=== PATIENT | male | born 1965 | race Caucasian/White ===

== ENCOUNTER 2018-01-14 15:17 | Emergency (ER) | payer SELFPAY ==
--- NOTE | 2018-01-14 15:31 | PDOC ---
Rapid Medical Evaluation Time Seen by Provider: 01/14/18 15:28 Medical Evaluation: I have performed a brief in-person evaluation of this patient. The patient presents with a chief complaint of: left big toe pain since friday. atraumatic Pertinent physical exam findings: tender, swelling and erythema to base of left big toe. possible gout I have ordered the following: xray left foot The patient will proceed to the ED for further evaluation. Discharge Disposition - Diagnosis Left foot pain - Referrals - Patient Instructions - Post Discharge Activity
[2018-01-14 15:33] VITALS: BP 148/87; PULSE 68; TEMP 98.3; BMI 28.8
--- NOTE | 2018-01-14 16:05 | PDOC ---
History of Present Illness - General Chief Complaint: Pain Stated Complaint: SWOLLEN RT FOOT Time Seen by Provider: 01/14/18 15:28 History Source: Patient Exam Limitations: Clinical Condition - History of Present Illness Initial Comments: 01/14/18 15:58 [place] with no significant past medical history presenting with complaints of right big toe pain, redness and swelling. he denies any trauma to area. He denies fever, chills and denies history of gout. Timing/Duration: 24 hours Severity: moderate Modifying Factors: improves with: rest. worse with: movement Past History - Past Medical History Allergies/Adverse Reactions: Allergies Allergy/AdvReac Type Severity Reaction Status Date / Time No Known Allergies Allergy Verified 01/14/18 15:28 Home Medications: Ambulatory Orders Indomethacin 25 mg PO TID PRN #20 capsule 01/14/18 COPD: No - Suicide/Smoking/Psychosocial Hx Smoking History: Never smoked Have you smoked in the past 12 months: No Information on smoking cessation initiated: No Hx Alcohol Use: No Drug/Substance Use Hx: No Substance Use Type: None Review of Systems - Review of Systems Able to Perform ROS?: Yes Comments:: 01/14/18 16:00 CONSTITUTIONAL: Absent: fever, chills, fatigue EYES: Absent: visual changes ENT: Absent: ear pain, sore throat CARDIOVASCULAR: Absent: chest pain, palpitations RESPIRATORY: Absent: cough, SOB GI: Absent: abdominal pain, nausea, vomiting, constipation, diarrhea GENITOURINARY: Absent: dysuria, frequency, hematuria MUSKULOSKELETAL: Absent: back pain, arthralgia, myalgia SKIN: Redness to there left big toe, which is very painful with ambulation. Pain to same area of redness of left big toe Absent: rash NEURO: Absent: headache, dizziness Is the patient limited [place] Citizen proficient: No *Physical Exam - Vital Signs Last Vital Signs Temp Pulse Resp BP Pulse Ox 98.3 F 68 18 148/87 100 01/14/18 15:29 01/14/18 15:29 01/14/18 15:29 01/14/18 15:29 01/14/18 15:29 - Physical Exam Comments: 01/14/18 16:02 GENERAL: Well developed, well nourished. Awake and alert. No acute distress. HEENT: Normocephalic, atraumatic. PERRLA, EOMI. No conjunctival pallor. Sclera are non- icteric. Moist mucous membranes. Oropharynx is clear. NECK: Supple. Full ROM. No JVD. Carotid pulses 2+ and symmetric, without bruits. No thyromegaly. No lymphadenopathy. CARDIOVASCULAR: Regular rate and rhythm. No murmurs, rubs, or gallops. Distal pulses are 2+ and symmetric. PULMONARY: No evidence of respiratory distress. Lungs clear to auscultation bilaterally. No wheezing, rales or rhonchi. ABDOMINAL: Soft. Non-tender. Non-distended. No rebound or guarding. No organomegaly. Normoactive bowel sounds. MUSCULOSKELETAL : moderate tenderness to base of left the big toe. mild swelling to left big toe Normal range of motion at all joints. No bony deformities or tenderness. No CVA tenderness. EXTREMITIES: No cyanosis. No clubbing. No edema. No calf tenderness. SKIN: moderate erythema to base and proximal phalanx of left big toe. mild increased warm to left big toe NEUROLOGICAL: Alert, awake, appropriate. Cranial nerves 2-12 intact. No deficits to light touch and temperature in face, upper extremities and lower extremities. No motor deficits in the in face, upper extremities and lower extremities. Normoreflexic in the upper and lower extremities. Normal speech. Toes are down- going bilaterally. Gait is normal without ataxia. PSYCHIATRIC: Cooperative. Good eye contact. Appropriate mood and affect. General Appearance: Yes: Nourished, Appropriately Dressed, Mild Distress Medical Decision Making - Medical Decision Making 01/14/18 16:05 Patient with presented to with left toe pain redness and swelling. Symptoms likely gout arthritis. X-ray of left toe and foot ordered. Labs ordered. Treat based on x-ray and lab report 01/14/18 17:03 No acute fracture pathology on x-ray of left toe or foot. Uric acid and ESR within normal limits. Discharge home on NSAIDs and podiatry follow-up *DC/Admit/Observation/Transfer Diagnosis at time of Disposition: Left foot pain, Pain of left great toe - Discharge Dispostion Disposition: HOME Condition at time of disposition: Stable Decision to Admit order: No - Prescriptions Prescriptions: Indomethacin 25 mg PO TID PRN #20 capsule PRN Reason: foot pain - Referrals Referrals: Kimani Jenkins MD [Staff Physician] - - Patient Instructions Printed Discharge Instructions: DI for Gout Additional Instructions: Take medication as prescribed. Follow-up with podiatry - Post Discharge Activity
[2018-01-14] MEDS ORDERED: IBUPROFEN 400 MG TABLET (FP) PO ONE ×2 (17:03→17:11)
== END 2018-01-14 17:15 | disposition home or self-care (01) ==
LOC: JERFT 15:17
DX: M10.9 Gout, unspecified (principal)
CPT/HCPCS: 36415; 73630-TC-LT; 84550; 85651; 99281-25